=== PATIENT | female | born 1995 | race Caucasian/White ===

== ENCOUNTER 2019-01-27 18:55 | Emergency (ER) | payer BC ==
[2019-01-27 19:24] LABS: Bilirubin Negative (Negative); Blood, Urine 3+ (Negative); Clarity Turbid (Clear); Glucose, Urine (Dipstick) Normal (Negative); Leukocyte 25 Leu/uL (Negative); Nitrite Negative (Negative); Protein, Urine (Dipstick) 10 mg/dL (Neg-Trace); RBC/HPF Greater than 50 HPF (0-3); Urobilinogen Normal mg/dL (Less than 2)
[2019-01-27 19:32] LABS: Bacteria/HPF 2+ HPF (None Seen)
[2019-01-27] MEDS ORDERED: Acetaminophen 325 MG TAB ONE (19:45)
[2019-01-27] MEDS ORDERED: Ondansetron ODT 4 MG TAB ONE (19:45)
[2019-01-27 21:04] LABS: #Basophils 0.1 thou/uL (0.0-0.2); #Eosinphils 0.1 thou/uL (0.0-0.7); #Lymphocytes 2.7 thou/uL (1.20-3.40); #Monocytes 0.7 thou/uL (0.11-0.59); #Neutrophils 15.9 thou/uL (1.40-6.50); %Basophils 0.7 % (0.0-1.0); %Eosinophils 0.7 % (0.0-10.0); %Lymphocytes 13.7 % (21.0-51.0); %Monocytes 3.5 % (0.0-10.0); %Neutrophils 81.4 % (42.0-75.0); Hemoglobin 14.6 g/dL (12.0-16.0); Mean Corpuscular HGB CONC 33.7 g/dL (32.0-36.0); Mean Corpuscular Hemoglobin 29.4 pg (27.0-31.0); Mean Corpuscular Volume 87.3 fL (78.0-98.0); Mean Platelet Volume 7.6 fL (7.4-10.4); Platelet Count 310 thou/uL (130-400); RBC Distribution Width 10.6 % (11.5-14.5); Red Blood Cell (RBC) Count 4.95 mill/uL (4.20-5.40); White Blood Cell (WBC) Count 19.5 thou/uL (4.8-10.8)
--- NOTE | 2019-01-27 21:21 | ULT ---
ULTRASOUND PELVIC ULTRASOUND TRANSVAGINAL DOPPLER DUPLEX: DATE: 01/27/2019 HISTORY: 23-year-old female with first trimester vaginal bleeding and severe pelvic pain. TECHNIQUE: Transabdominal transducer and endovaginal transducer used to visualize intrapelvic contents with hernandez scale, color-flow, and spectral analysis. FINDINGS: Intrauterine gestational sac at uterine fundus. Yolk sac visualized. Embryonic pole visualized. [facility]-rump length 0.8 cm, 6 weeks 6 days gestational age. No embryonic heart activity detected. Intermediate echogenicity material within the endometrial cavity at the corpus of the uterus perhaps represents blood clot. Towards the end of the examination, gestational sac changes into hourglass shape, and its lower porti on begins to migrated caudally from the fundus to the body towards the lower uterine segment. Bilateral ovaries are normal in size with demonstration of blood flow. No free fluid in the cul-de-sac. No corpus luteal cyst. IMPRESSION: 1. First trimester intrauterine demise, missed . 2. Probable in progress.
[2019-01-27] MEDS ORDERED: HYDROcodone/Acetaminophen 5/325 mg Tablet ONE (21:51)
== END 2019-01-27 23:02 | disposition home or self-care (01) ==
LOC: ERS 18:55
DX: O03.9 Complete or unspecified spontaneous abortion without complication (principal); F17.200 Nicotine dependence, unspecified, uncomplicated
CPT/HCPCS: 36415; 76856; 81003; 81015; 84702; 85025; 86900; 86901; 90384; 96372; Q0162